=== PATIENT | female | born 1970 | race Caucasian/White ===

== ENCOUNTER 2024-02-05 15:37 | Emergency (ER) | payer MEDICAID, OTHER ==
[~2024-02-05] VITALS: Ht 160 cm; Wt 96.1 kg
[2024-02-05 15:37] VITALS: BP 141/84; PULSE 81; RESP 18; O2SAT 97
== END 2024-02-05 16:18 | disposition left against medical advice (07) ==
LOC: ER 15:37
DX: H57.12 Ocular pain, left eye (principal); Z53.21 Procedure and treatment not carried out due to patient leaving prior to being seen by health care provider